=== PATIENT | female | born 1985 | race Caucasian/White ===

== ENCOUNTER 2024-05-10 11:26 | Emergency (ER) | payer OTHER, SELFPAY ==
[2024-05-10] VITALS (7 sets, daily range): BP systolic 107–139; BP diastolic 63–88
[2024-05-10 12:45] LABS: % Basophils 0.6 % (0-2); % Eosinophils 0.9 % (0-6); % Immature Granulocytes 0.2 % (0-0.5); % Lymphocytes 22.6 % (20.5-51.1); % Neutrophils 69.7 % (42.2-75.2); Absolute Basophils 0.1 10^3/uL (0-0.2); Absolute Eosinophils 0.1 10^3/uL (0-0.7); Absolute Lymphocytes 1.8 10^3/uL (1.2-3.4); Absolute Monocytes 0.5 10^3/uL (0.1-0.6); Absolute Neutrophils 5.6 10^3/uL (1.4-6.5); Hematocrit 34.2 % (37.0-47.0); Hemoglobin 11.3 g/dL (12.0-16.0); Mean Corpuscular Hgb 29.8 pg (27.0-31.0); Mean Corpuscular Volume 90.2 fL (81.0-99.0); Nucleated Red Blood Cells % 0 %; Platelet Count 287 10^3/uL (130-400); Red Blood Cell Count 3.79 10^6/uL (4.20-5.40); Red Cell Dist. Width 12.6 % (11.5-14.5)
[2024-05-10 13:18] LABS: Beta HCG Quantitative 163.89 mIU/ml
[2024-05-10 13:20] LABS: ALT (SGPT) 13 U/L (0-35); AST (SGOT) 19 U/L (14-36); Albumin 4.4 g/dl (3.5-5.0); Alkaline Phosphatase 40 U/L (38-126); Blood Urea Nitrogen 8 mg/dl (7-17); Calcium 9.3 mg/dl (8.4-10.2); Carbon Dioxide 27 mmol/L (22-30); Chloride 108 mmol/L (98-107); Glucose 98 mg/dl (70-99); Potassium 4.3 mmol/L (3.5-5.1); Sodium 143 mmol/L (135-145); Total Bilirubin 0.3 mg/dl (0.2-1.3); eGFR > 60.00
--- NOTE | 2024-05-10 14:10 | ED.GENMED ---
History of Present Illness
General
Chief Complaint: Vaginal Bleeding
Source: patient
Exam Limitations: none
Time Seen by Provider: 05/10/24 12:05
Nursing documentation reviewed up to this point in time: agreed with
History of Present Illness
History of Present Illness:
38 yo female here for persistent vaginal bleeding with malodor. [id number]. Started bleeding 04/16 at 5-6 weeks . Heavier bleeding 3 15-16. Passed what she thought was the sac a couple days later. Bleeding slowed but developed aching
pains in both her legs. Had crampy pains early on but now w minimal abdominal pain. Bleeding remains small amount red to brown and only with wiping and has become malodorous. Her legs still 'ache.' She has no [facility] doctor in this area so called
[facility]'s office and told to come here.
Past History
Past History
ED Past Medical History: None
ED Past Surgical History: Gynecological
Social History
Tobacco: Non-smoker
Alcohol: Occasional
Personal:
Living: with family
Employment: Employed
Review of Systems
Review of Systems
Allergies reviewed?: Yes
All Other Systems: ROS reviewed and negative except as documented in HPI and ROS
Constitutional: Denies fever or chills
ABD/GI: Reports abdominal pain (mild); Denies nausea, vomiting or diarrhea
: Reports bleeding; Denies dysuria, frequency or difficulty voiding
Musculoskeletal: Reports no symptoms
Skin: Reports no symptoms
Neurological: Reports no symptoms
Phy Exam
Physical Exam
Physical Exam:
GENERAL: No acute distress. A&Ox3.
CONSTITUTIONAL: Afebrile.
EYES: clear, conjunctivae normal
ENMT: moist mucus membranes
RESPIRATORY: Regular respirations, nonlabored, lungs clear.
CARDIOVASCULAR: Regular rate and rhythm, no murmurs, no rubs.
GI: Soft, nontender, normal BS
: small amount dark blood on panties
MUSCULOSKELETAL: Moves with ease. Well perfused.
SKIN: Warm, dry, pink
PSYCH: Normal mood and affect. Well kept, interactive and appropriate
NEUROLOGIC: Awake, alert and oriented. No focal neurological deficits
Genitourinary Exam Female
Exam Female: no CMT, no mass and vaginal bleeding (small amount brownish discharge)
Course
Orders/Labs/Results
Orders:
Orders
05/10/24 12:07
US Pelvis W Transvag Combined Urgent
Comment:
Reason For Exam: miscarriage 04/16 still bleeding, cramps, foul odor
05/10/24 12:35
Complete Blood Count/With Diff Urgent
Comprehensive Metabolic Panel Urgent
HCG, Beta Quantitative [Beta HCG Quantitative] Urgent
Is this a screen?: No
05/10/24 17:13
Vaginitis Panel by [facility] [S] Urgent
Abnormal Lab Results
05/10/24
12:35
RBC 3.79 L 10^6/uL
(4.20-5.40)
Hgb 11.3 L g/dL
(12.0-16.0)
Hct 34.2 L %
(37.0-47.0)
Chloride 108 H mmol/L
(98-107)
05/10/24 12:35
05/10/24 12:35
Vital Signs
Initial and Last Documented VS:
Initial Vital Signs
Temp Pulse Resp BP Pulse Ox
98.4 F 99 18 139/88 100
05/10/24 11:05/10/24 11:30 05/10/24 11:30 05/10/24 11:30 05/10/24 11:30
Last Documented Vital Signs
Temp Pulse Resp BP Pulse Ox
98.4 F 99 18 124/76 99
05/10/24 11:05/10/24 11:05/10/24 11:30 05/10/24 16:09 05/10/24 16:45
MDM/Problems Addressed
Differential Diagnosis Includes:
retained POC, post miscarriage infection
MDM/Problems Addressed:
38 yo female here for persistent vaginal bleeding with malodor. [id number]. Started bleeding 3/7 at 5-6 weeks . Heavier bleeding 3 15-16. Passed what she thought was the sac a couple days later. Bleeding slowed but developed aching
pains in both her legs. Had crampy pains early on but now w minimal abdominal pain. Bleeding remains small amount red to brown and only with wiping and has become malodorous. Her legs still 'ache.' She has no [facility] doctor in this area so called .
[facility] office and told to come here.
Afebrile, NAD
3:45 p.m.
CBC with no clinically significant abnormality
CMP normal hCG 163.89
US: IMPRESSION:
The endometrium is thickened with mild hypervascularity. Retained products cannot be excluded
Consulted [facility] Dr. Mane.
Spoke with Dr. Mane who states since no other of his signs of infection, recommend Cytotec to clear what ever still lingering inside the uterus vs surgical option
She will be in to talk to pt
5:00 PM: Dr. Reeder for into speak with patient, she discussed US results and Cytotec, then she had to leave for a delivery
She will call in a prescription for Cytotec for the patient
She requested that I get a culture for bacterial vaginosis which has been sent
Pt stable for discharge.
*Critical Care Note
Total Time (30-74mins, 75-104mins- exclusive of procedures): Not Applicable
ED Attending Note
-
Portions of this chart may have been created with voice recognition software.� Occasional wrong word or��sound alike� substitutions may have occurred due to the inherent limitations of voice recognition software.
Discharge Plan
Departure
Patient Disposition: Home (Routine Discharge)
Date of Disposition: 05/10/24
Time of Disposition: 17:02
Patient with high blood pressure during this ER visit?: No
Condition: Good
Discharge Problem:
Abnormal vaginal bleeding
Instructions: Vaginal discharge
Prescriptions:
New
misoprostol [Cytotec] 200 mcg tablet
800 mcg PO ONCE Qty: 4 0RF
Rx Instructions:
place all 4 tablets into vagina
No Action
PNV,calcium [id number] acid [ Vitamin Plus Low Iron] 1 TABLET tablet
1 tab PO DAILY
acetaminophen 325 MG tablet
650 mg PO Q3HPRN PRN (Reason: mild pain) Qty: 0 0RF
sennosides-docusate sodium 1 TABLET tablet
1 tab PO DAILYPRN PRN (Reason: constipation) Qty: 0 0RF
ibuprofen 600 MG tablet
600 mg PO Q4HPRN PRN (Reason: moderate pain/cramps) Qty: 0 0RF
Referrals:
Romi Mane MD [Active] - Call in 1-3 days for appt
Shameka Ray DO [Family Provider] -
Activity Restrictions/Additional Instructions:
As we discussed, have your hCG rechecked next Friday, I gave you an outpatient lab slip for it.
Call Dr. Mane's office tomorrow and make an appointment for follow-up
Return here immediately for fever or chills, significant abdominal pain, vomiting or feeling sicker in any way
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
Interventions
Interventions:
*Risk Screen - Suicide Last Done: 05/10/24 11:30
*General Assessment Last Done: 05/10/24 11:30
*Neglect/Abuse Screening Last Done: 05/10/24 11:30
*ED- Fall Risk Assessment Last Done: 05/10/24 12:38
*ED COVID-19 Vaccine History Last Done: 05/10/24 12:38
*Nursing Disposition Last Done: 05/10/24 17:46
ED-Female Genitourinary Assessment Last Done: 05/10/24 12:39
Discharge Date and Time
Discharge Date/Time: 05/10/24 17:47
Print Language: PORTUGUESE
--- NOTE | 2024-05-10 19:08 | CON.MD ---
Consultation - Medical
-
38yo presented to the ER w/ c/o persistent light bleeding and now a malodorous discharge since having a miscarriage a couple weeks ago. Elin states that at the beginning of April she had 2 US at a clinic and was ultimately diagnosed with
what I suspect was a blighted ovum. She states that 2 weeks ago she started bleeding heavily overall lasted 10 hours and believes she passed the sac. She also had a lot of cramping at that time. Her cramping has since lessened, now very minimal and
her bleeding has now decreased to spotting but recently started to become foul smelling so she grew concerned. She denies f/c/N/v at home. normal appetite. NO UTI symptoms.
PMHx: None
PSHx: D&E
SHx: occ ETOH no tob/ill
Meds: None
All: NKDA
FHx: non contributory
Vitals and Labs: See Below
Pelvic US: Uterus 11.8x 4.9x 5.7cm EMS 22mm. mild increase in vascularity. NO intrauterine mass or fluid collected seen. No Free fluid in pelvis. Right ovary 2.3cm. Left ovary 1.9cm. Retained POC cannot be excluded.
Gen: nad well appearing
Remainder of exam not performed by me as I was called away to L&D floor before being able to perform it but per ER provider- benign exam
A/P: 38yo with possible Retained POC after a SAB
I explained to patient the US and lab findings today. She has no leukocytosis, is afebrile and non acute abdomen so concern for infection is very low. Explained she can have light bleeding for 2-4 weeks after a miscarriage so that is not unusual
however given the U/S findings that still show a thickened stripe there is suspicion for some residual tissue still present. I therefore discussed management of this to include either 1. D&E or 2. medication with cytotec. Given that she is
hemodynamically stable without s/sx of uterine infection I think it would be fine to start with medication, I do not feel that she needs urgent surgery. Reviewed the use of cytotec- Rx sent to pharmacy. Reviewed bleeding expectations and reasons to
return to the ER. Also advised that I want her to repeat HCG in 1 week, we want to ensure it trends to negative.
I also asked ED provider to do a vaginal culture given her c/o odor- I was not able to do myself as I was pulled away urgently to L&D.
Will have the office reach out to patient tomorrow to schedule outpatient f/u.
Vital Signs / Labs
-
Vital Signs and Labs:
Temp Pulse Resp BP Pulse Ox
98.4 F 99 18 124/76 99
05/10/24 11:30 05/10/24 11:30 05/10/24 11:30 05/10/24 16:09 05/10/24 16:45
05/10/24 12:35
05/10/24 12:35
05/10/24
12:35
RBC 3.79 L
Hgb 11.3 L
Hct 34.2 L
Chloride 108 H
HCG 163.89
[2024-05-12 19:24] LABS: Bacterial Vaginosis by TMA Positive; Candida glabrata by TMA Negative; Candida species by TMA Negative; Trichomonas vaginalis by TMA Negative
== END 2024-05-10 17:47 | disposition home or self-care (01) ==
LOC: EMR 11:26
PROVIDERS: Registered Nurse; EMERGENCY PHYSICIAN Student in an Organized Health Care Education/Training Program; FAMILY PHYSICIAN Family Medicine
DX: N93.9 Abnormal uterine and vaginal bleeding, unspecified (principal)
CPT/HCPCS: 99284; 76830; 76856; 80053; 81513; 84702; 85025; 87481; 87661